=== PATIENT | male | born 1965 | race Caucasian/White ===

== ENCOUNTER 2016-11-28 08:17 | Emergency (ER) | payer MEDICAID ==
[~2016-11-28] VITALS: Ht 177.8 cm; Wt 95.1 kg
[~2016-11-28 08:17] MED LIST: ALBU18HF MT; CITA20TA5 PO; FOLI-17 PO; MULT-750 PO; THIA100T6 PO
[2016-11-28] MEDS ORDERED: PRED10TA PO (09:32)
[2016-11-28] MEDS ORDERED: HYDROcodone/APAP 5/325 TABLET ONE (09:53)
[2016-11-28] MEDS ORDERED: HYDROcodone/APAP 5/325 TABLET PO ONE (10:00)
[2016-11-28 10:14] VITALS: BP 113/81
== END 2016-11-28 10:16 | disposition home or self-care (01) ==
LOC: ED 09:42
DX: M79.671 Pain in right foot (principal); M79.672 Pain in left foot
CPT/HCPCS: 99283